=== PATIENT | female | born 1930 | race Caucasian/White ===

== ENCOUNTER 2016-06-24 04:20 | Emergency (ER) | payer OTHER, MEDICARE ==
--- NOTE | 2016-06-24 04:56 | PDOC ---
History of Present Illness - History of Present Illness Initial Comments: 06/24/16 05:01 The patient is a 86 year old female, with a significant past medical history of gait instability and frequent falls, who presents to the emergency department via ems from home for unwitnessed mechanical fall yesterday, The patient was found seated at home as per ems this morning. The patient reports frequent falls recently and a new abrasion to the left side of her face. The patient states she remembers the series of events leading up to the fall but does not know if she lost consciousness. She denies chest pain, shortness of breath, headache and dizziness. She denies fever, chills, nausea, vomit, diarrhea and constipation. She denies dysuria, frequency, urgency and hematuria. Allergies: NKDA PCP - Dr. Bennett <Yaz Andersen - Last Filed: 06/24/16 06:04> - General History Source: Patient <Milton Espinoza - Last Filed: 06/24/16 06:09> - General Chief Complaint: Injury Stated Complaint: FALL Time Seen by Provider: 06/24/16 04:56 Past History <Yaz Andersen - Last Filed: 06/24/16 06:04> - Past Medical History HTN: Yes Hypercholesterolemia: Yes Psychiatric Problems: Yes (Anxiety disorder) - Surgical History Abdominal Surgery: Yes (HERNIA) Orthopedic Surgery: Yes (Bilateral Knees) - Immunization History Immunization Up to Date: Yes - Psycho/Social/Smoking Cessation Hx Anxiety: Yes Suicidal Ideation: No Smoking Status: No Smoking History: Never smoked Have you smoked in the past 12 months: No Number of Cigarettes Smoked Daily: 0 Hx Alcohol Use: No Drug/Substance Use Hx: No Substance Use Type: None Hx Substance Use Treatment: No <Milton Espinoza - Last Filed: 06/24/16 06:09> - Past Medical History Allergies/Adverse Reactions: Allergies Allergy/AdvReac Type Severity Reaction Status Date / Time No Known Allergies Allergy Verified 06/24/16 05:01 Home Medications: Ambulatory Orders Carbidopa/Levodopa *Cr* 25/100 [Sinemet *Cr* 25/100 -] 1 combo PO TID #0 tablet.er 09/30/13 Donepezil HCl [Aricept -] 5 mg PO DAILY #0 tablet 09/30/13 Aspirin [ASA -] 81 mg PO DAILY #0 tab.chew 07/13/15 Atorvastatin Ca [Lipitor] 10 mg PO HS #0 tablet 07/13/15 Carbidopa/Levodopa *Cr* 25/100 [Sinemet *Cr* 25/100 -] 1 combo PO TID #0 tablet.er 07/13/15 Donepezil HCl [Aricept -] 5 mg PO DAILY #0 tablet 07/13/15 Metoprolol Succinate [Toprol XL -] 25 mg PO BID #0 tab.sr.24h NS 07/13/15 Metoprolol Succinate [Toprol XL -] 25 mg PO DAILY tab.sr.24h 07/13/15 Pramipexole Dihydrochloride [Mirapex -] 0.25 mg PO TID #0 tablet 07/13/15 Sertraline HCl [Zoloft -] 25 mg PO HS #0 07/13/15 Review of Systems - Review of Systems Able to Perform ROS?: Yes Comments:: 06/24/16 05:01 CONSTITUTIONAL: Absent: fever, chills, diaphoresis, generalized weakness, malaise, loss of appetite HEENT: (+) abrasion to left mu-ism s/p fall. Absent: rhinorrhea, nasal congestion, throat pain, throat swelling, difficulty swallowing, mouth swelling, ear pain, eye pain, visual Changes CARDIOVASCULAR: Absent: chest pain, syncope, palpitations, irregular heart rate, lightheadedness , peripheral edema RESPIRATORY: Absent: cough, shortness of breath, dyspnea with exertion, orthopnea, wheezing, stridor, hemoptysis GASTROINTESTINAL: Absent: abdominal pain, abdominal distension, nausea, vomiting, diarrhea, constipation, melena, hematochezia GENITOURINARY: Absent: dysuria, frequency, urgency, hesitancy, hematuria, flank pain, genital pain MUSCULOSKELETAL: Absent: myalgia, arthralgia, joint swelling SKIN: Absent: rash, itching, pallor HEMATOLOGIC/IMMUNOLOGIC: Absent: easy bleeding, easy bruising, lymphadenopathy, frequent infections ENDOCRINE: Absent: unexplained weight gain, unexplained weight loss, heat intolerance, cold intolerance NEUROLOGIC: Absent: headache, focal weakness or paresthesias, dizziness, unsteady gait, seizure, mental status changes, bladder or bowel incontinence PSYCHIATRIC: Absent: anxiety, depression, suicidal or homicidal ideation, hallucinations. <Yaz Andersen - Last Filed: 06/24/16 06:04> *Physical Exam - Vital Signs Last Vital Signs Temp Pulse Resp BP Pulse Ox 97.2 F L 99 H 18 138/59 100 06/24/16 04:51 06/24/16 04:51 06/24/16 04:51 06/24/16 04:51 06/24/16 04:51 - Physical Exam Comments: 06/24/16 05:02 GENERAL: Well developed, well nourished. Awake and alert. No acute distress. The patient is appropriately answering questions. HEENT: (+) occipital temporal abrasion on left side. Normocephalic, PERRLA, EOMI. No conjunctival pallor. Sclera are non-icteric. Moist mucous membranes. Oropharynx is clear. NECK: Supple. Full ROM. No JVD. Carotid pulses 2+ and symmetric, without bruits. No thyromegaly. No lymphadenopathy. CARDIOVASCULAR: Regular rate and rhythm. No murmurs, rubs, or gallops. Distal pulses are 2+ and symmetric. PULMONARY: No evidence of respiratory distress. Lungs clear to auscultation bilaterally. No wheezing, rales or rhonchi. ABDOMINAL: Soft. Non-tender. Non-distended. No rebound or guarding. No organomegaly. Normoactive bowel sounds. MUSCULOSKELETAL Normal range of motion at all joints. No bony deformities or tenderness. No CVA tenderness. EXTREMITIES: No cyanosis. No clubbing. No edema. No calf tenderness. SKIN: Warm and dry. Normal capillary refill. No rashes. No jaundice. NEUROLOGICAL: Alert, awake, appropriate. Cranial nerves 2-12 intact. Normoreflexic in the upper and lower extremities. Normal speech. Toes are down-going bilaterally. Gait is normal without ataxia. PSYCHIATRIC: Cooperative. Good eye contact. Appropriate mood and affect. <Yaz Andersen - Last Filed: 06/24/16 06:04> ED Treatment Course - RADIOLOGY Radiograph Interpretation: 06/24/16 06:02 EXAM: CT brain without contrast was read by Yves Nieto MD 06/24/2016 05:58 EST REASON FOR EXAM: Dizziness rule out bleed. Fall. COMPARISON: CT brain November 11, 2015 FINDINGS: Involutional changes of aging. No hemorrhage. No mass. No visible acute infarct. Osseous structures are intact. EXAM: CT cervical spine without contrast was read by Yves Nieto MD 2016 05:50 EST COMPARISON: No prior scans transmitted for comparison. FINDINGS: Negative for cervical fracture or acute cervical malalignment. Osteopenia and degenerative changes. No made of a fairly large partially calcified disc herniation at C3-4 impressing on the canal and impressing on the anterior margin of the spinal cord, causing canal narrowing. Correlate with prior scans to determine if this was present previously. Correlate with any neurologic symptoms. If prior scans can be transmitted I can perform a comparative interpretation. <Yaz Andersen - Last Filed: 06/24/16 06:04> Medical Decision Making - Medical Decision Making 06/24/16 06:04 Dr. Bennett was called at 6:05 and the patient's case was discussed. <Yaz Andersen - Last Filed: 06/24/16 06:04> - Medical Decision Making 06/24/16 06:08 Dr. Espinoza: The scribe's documentation has been prepared under my direction and personally reviewed by me in its entirery. I confirm that the note above accurately reflects all work, treatment, procedures, and medical decision making performed by me. Spoke to pt pcp. Made him aware that pt was here. Will attempt to contact family. <Milton Espinoza - Last Filed: 06/24/16 06:09> *DC/Admit/Observation/Transfer - Attestations Scribe Attestion: 06/24/16 05:04 Documentation prepared by Yaz Andersen, acting as medical manager for Milton Espinoza MD <Yaz Andersen - Last Filed: 06/24/16 06:04> - Discharge Dispostion Admit: No <Milton Espinoza - Last Filed: 06/24/16 06:09> Diagnosis at time of Disposition: Closed head injury Qualifiers: Encounter type: subsequent encounter Qualified Code(s): S09.90XD - Unspecified injury of head, subsequent encounter - Discharge Dispostion Disposition: HOME Condition at time of disposition: Stable - Referrals Referrals: Tucker Bennett MD [Primary Care Provider] - - Patient Instructions Printed Discharge Instructions: DI for Closed Head Injury
[2016-06-24 05:00] VITALS: BP 138/59; PULSE 99; TEMP 97.2; BMI 18.8
== END 2016-06-24 07:03 | disposition home or self-care (01) ==
LOC: JER 04:20
DX: S00.81XA Abrasion of other part of head, initial encounter (principal); W18.39XA Other fall on same level, initial encounter; Z91.81 History of falling; Y93.89 Activity, other specified; Y92.019 Unspecified place in single-family (private) house as the place of occurrence of the external cause; Y99.8 Other external cause status; I10 Essential (primary) hypertension; E78.00 Pure hypercholesterolemia, unspecified; F41.8 Other specified anxiety disorders
CPT/HCPCS: 70450-TC; 72125-TC; 99284-25

== ENCOUNTER 2016-06-26 11:45 | Inpatient (IN) | payer OTHER, MEDICARE ==
--- NOTE | 2016-06-26 11:50 | PDOC ---
Attending Attestation - Resident Resident Name: PremMona - ED Attending Attestation I have performed the following: I have examined & evaluated the patient, The case was reviewed & discussed with the resident, I agree w/resident's findings & plan, Exceptions are as noted - HPI HPI: 06/26/16 11:49 The patient is an 86-year-old female, with extensive past medical history, who presents to the emergency department complaining of constipation for the past 10 days. Her last bowel movement was 10 days ago. She denies abdominal pain, vomiting. Her primary care physician sent her to the emergency department to rule out small bowel obstruction, and for inpatient admission. 06/26/16 11:50 06/26/16 12:44 - Physicial Exam PE: 06/26/16 11:50 The patient is well-appearing and in no acute distress Vitals noted - Medical Decision Making 06/26/16 11:50 She is well-appearing and in no acute distress Will obtain labs, CT of the abdomen and pelvis with oral contrast Will begin gentle fluid resuscitation 06/26/16 13:[address] pending 06/26/16 15:30 UA noted Clinical impression: Failure to thrive Frequent falls Starvation ketosis Severe constipation 06/26/16 15:46 CT was done, and results are pending Primary care physician has seen the patient Case discussed in detail with admitting provider including history, physical exam and ancillary studies. Admitting physician has assumed care for the patient, will follow all pending diagnostics and will complete the evaluation and treatment. A portion of this note was documented by scribe services under my direction. I have reviewed the details of the note, within reason, and agree with the documentation with the following case summary and management plan written by me.
--- NOTE | 2016-06-26 11:53 | PDOC ---
History of Present Illness - General Stated Complaint: FALL Time Seen by Provider: 06/26/16 11:49 - History of Present Illness Initial Comments: 06/26/16 11:53 The patient is a 85 year old female with a significant past medical history of Parkinson's disease, HTN, history of falls, Renal failure, cholelithiasis, anxiety, depression, who presents to the ED referred by her primary care physician. She is complaining of constipation for 10 days. She has tried many OTC supplements without any relief. She has been complaining of constipation for long time. SHe also reports dysuria yesterday and increased frequency. The pt denies abdominal pain, fever, weight loss, fever, chills. The pt denies chest pain, SOB, palpitations. The pt denies headache, weakness, headache. Past History - Past Medical History Allergies/Adverse Reactions: Allergies Allergy/AdvReac Type Severity Reaction Status Date / Time No Known Allergies Allergy Verified 06/24/16 05:01 Home Medications: Ambulatory Orders Carbidopa/Levodopa *Cr* 25/100 [Sinemet *Cr* 25/100 -] 1 combo PO TID #0 tablet.er 09/30/13 Donepezil HCl [Aricept -] 5 mg PO DAILY #0 tablet 09/30/13 Aspirin [ASA -] 81 mg PO DAILY #0 tab.chew 07/13/15 Atorvastatin Ca [Lipitor] 10 mg PO HS #0 tablet 07/13/15 Carbidopa/Levodopa *Cr* 25/100 [Sinemet *Cr* 25/100 -] 1 combo PO TID #0 tablet.er 07/13/15 Donepezil HCl [Aricept -] 5 mg PO DAILY #0 tablet 07/13/15 Metoprolol Succinate [Toprol XL -] 25 mg PO BID #0 tab.sr.24h NS 07/13/15 Metoprolol Succinate [Toprol XL -] 25 mg PO DAILY tab.sr.24h 07/13/15 Pramipexole Dihydrochloride [Mirapex -] 0.25 mg PO TID #0 tablet 07/13/15 Sertraline HCl [Zoloft -] 25 mg PO HS #0 07/13/15 HTN: Yes Hypercholesterolemia: Yes Psychiatric Problems: Yes (Anxiety disorder) - Surgical History Abdominal Surgery: Yes (HERNIA) Orthopedic Surgery: Yes (Bilateral Knees) - Immunization History Immunization Up to Date: Yes - Psycho/Social/Smoking Cessation Hx Anxiety: Yes Suicidal Ideation: No Smoking Status: No Smoking History: Never smoked Have you smoked in the past 12 months: No Number of Cigarettes Smoked Daily: 0 Hx Alcohol Use: No Drug/Substance Use Hx: No Substance Use Type: None Hx Substance Use Treatment: No Review of Systems - Review of Systems Comments:: 06/26/16 12:25 REVIEW OF SYSTEMS CONSTITUTIONAL: Absent: fever, chills, diaphoresis, generalized weakness, malaise, loss of appetite, weight change HEENT: Absent: rhinorrhea, nasal congestion, throat pain, throat swelling, difficulty swallowing CARDIOVASCULAR: Absent: chest pain, syncope, palpitations, irregular heart rate, lightheadedness , peripheral edema RESPIRATORY: Absent: cough, shortness of breath, dyspnea with exertion, orthopnea, wheezing, stridor, hemoptysis GASTROINTESTINAL: constipation, Absent: abdominal pain, abdominal distension, nausea, vomiting, diarrhea, GENITOURINARY: Absent: dysuria, frequency, urgency, hesitancy, hematuria, flank pain, genital pain MUSCULOSKELETAL: Absent: myalgia, arthralgia, joint swelling, back pain, neck pain SKIN: Absent: rash, itching, pallor HEMATOLOGIC/IMMUNOLOGIC: Absent: easy bleeding, easy bruising, lymphadenopathy, frequent infections ENDOCRINE: Absent: unexplained weight gain, unexplained weight loss, heat intolerance, cold intolerance NEUROLOGIC: Absent: headache, focal weakness or paresthesias, dizziness, unsteady gait, seizure PSYCHIATRIC: Absent: anxiety, depression *Physical Exam - Physical Exam Comments: 06/26/16 12:26 GENERAL: The patient is awake, alert, and fully oriented, in no acute distress. HEAD: Normal with no signs of trauma. EYES: PERRL, extraocular movements intact, sclera anicteric, conjunctiva clear. ENT: oropharynx clear without exudates, moist mucous membranes. NECK: Trachea midline, full range of motion, supple. LUNGS: Breath sounds equal, diminished to auscultation bilaterally, no wheezes, no crackles, no accessory muscle use. HEART: Regular rate and rhythm, S1, S2 without murmur, rub or gallop. ABDOMEN: Soft, tender to palpation in epigastrium, nondistended, normoactive bowel sounds, no guarding, no rebound. EXTREMITIES: 2+ pulses, warm, well-perfused, no edema. NEUROLOGICAL: Normal speech, gait not observed. PSYCH: Normal mood, normal affect. SKIN: Warm, dry, normal turgor, no rashes. ED Treatment Course - LABORATORY CBC & Chemistry Diagram: 06/26/16 12:30 06/26/16 12:30 Medical Decision Making - Medical Decision Making 06/26/16 15:[address] abdomen/pelvis. L laboratory abnormalities noted. 06/26/16 16:05 The pt was admitted to inpatient med surg. CT abdomen/pelvis shows fecal impaction, no SBO. *DC/Admit/Observation/Transfer Diagnosis at time of Disposition: Small bowel obstruction - Discharge Dispostion Admit: Yes - Referrals
[2016-06-26] MEDS ORDERED: PEG3350/SOD SULF,BICARB,CL/KCL 4,000 ML SOLN.RECON PO ONE ×2 (12:05→17:30)
[2016-06-26] MEDS: SODIUM CHLORIDE 1,000 ML IV SCH ×2 (12:39→18:41)
[2016-06-26 12:49] LABS: MCH 28.9 pg (25.7-33.7); MEAN CELL VOLUME 84.9 fl (80-96); PLATELET COUNT 200 K/MM3 (134-434); RDW 13.7 % (11.6-15.6)
[2016-06-26 13:19] LABS: CALCIUM 9.4 mg/dL (8.5-10.1); COCKROFT - GAULT 109.65; CREATININE 0.6 mg/dL (0.55-1.02)
[2016-06-26 13:51] LABS: URINE APPEARANCE CLEAR; URINE BILIRUBIN NEGATIVE (NEGATIVE); URINE COLOR STRAW; URINE GLUCOSE (UA) NEGATIVE (NEGATIVE); URINE KETONE 1+ (NEGATIVE); URINE LEUK ESTERASE NEGATIVE (NEGATIVE); URINE NITRITE NEGATIVE (NEGATIVE); URINE PROTEIN NEGATIVE (NEGATIVE); URINE UROBILINOGEN NEGATIVE E.U./dl (0.2-1.0)
[2016-06-26 14:21] LABS: URINE BLOOD 2+ (NEGATIVE)
[2016-06-26 14:50] LABS: URINE RBC 28 /hpf (0-3); URINE WBC 2 /hpf (3-5)
--- NOTE | 2016-06-26 15:41 | HP ---
Admitting History and Physical - Admission Chief Complaint: 86 y.o F developed MS change, constipation for 10 days and was not able toeat or drink fluids. Seen in the ER after fall 06/24/2016 and was d/ c. Now brought back to the ER by the family. History of Present Illness: Advanced Parkinson"s disease. Unstable gait. Falls. Weight loss. Cholelithiasis. HTN/ Dementia. CRI. Hypokalemia, hypomagnesemia. 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 Cardiovascular: Yes: HTN, Hyperlipdemia Gastrointestinal: Yes: Constipation, Other Hepatobiliary: Yes: Cholelithiasis Renal/: Yes: Renal Inusuff Psych: Yes: Depression Musculoskeletal: Yes: Osteoarthritis - Smoking History Smoking history: Never smoked Have you smoked in the past 12 months: No Aproximately how many cigarettes per day: 0 - Alcohol/Substance Use Hx Alcohol Use: No Home Medications - Allergies Allergies/Adverse Reactions: Allergies Allergy/AdvReac Type Severity Reaction Status Date / Time No Known Allergies Allergy Verified 06/24/16 05:01 - Home Medications Home Medications: Ambulatory Orders Donepezil HCl [Aricept -] 5 mg PO DAILY 06/26/16 Potassium Chloride [K-Dur -] 10 meq PO DAILY 06/26/16 Simvastatin [Zocor -] 20 mg PO HS 06/26/16 Family Disease History - Family Disease History Family History: Unremarkable Family Disease History: Respiratory: Daughter Review of Systems Unable to obtain ROS, reason: Advanced Parkinson"s, OMS Physical Examination Vital Signs: Vital Signs Temperature 98.4 F 06/26/16 11:56 Pulse Rate Respiratory Rate 20 06/26/16 11:56 Blood Pressure 163/95 06/26/16 11:56 O2 Sat by Pulse Oximetry (%) Constitutional: Yes: Anxious, Cachectic, Moderate Distress, Pallor, Thin Eyes: Yes: Conjunctiva Clear, EOM Intact, PERRL HENT: Yes: Atraumatic, Normocephalic Neck: Yes: Trachea Midline, Decreased ROM, Rigid Cardiovascular: Yes: Regular Rate and Rhythm, S1, S2 Gastrointestinal: Yes: Normal Bowel Sounds, Soft ...Rectal Exam: Yes: Deferred Renal/: Yes: WNL Breast(s): Yes: Left, Right Musculoskeletal: Yes: Joint Stiffness Extremities: Yes: Other (No CCE) Edema: No Peripheral Pulses WNL: Yes Neurological: Yes: Alert, Dysarthria, Tremors, Unsteady Gait, Weakness ...Motor Strength: LUE, LLE, RUE, RLE (Stiffness) Psychiatric: Yes: Alert Labs: CBC, BMP 06/26/16 12:30 06/26/16 12:30 Laboratory Results - last 24 hr 06/26/16 06/26/16 06/26/16 12:30 12:30 13:40 WBC 4.0 RBC 4.68 Hgb 13.5 D Hct 39.8 MCV 84.9 MCHC 34.0 RDW 13.7 Plt Count 200 MPV 7.0 L Sodium 138 Potassium 3.9 Chloride 96 L D Carbon Dioxide 30 Anion Gap 12 BUN 8 D Creatinine 0.6 Random Glucose 74 D Calcium 9.4 Urine Color Straw Urine Appearance Clear Urine pH 7.0 Ur Specific Sullivan 1.010 Urine Protein Negative Urine Glucose (UA) Negative Urine Ketones 1+ H Urine Blood 2+ H Urine Nitrite Negative Urine Bilirubin Negative Urine Urobilinogen Negative Ur Leukocyte Esterase Negative Urine RBC 28 Urine WBC 2 Ur Epithelial Cells Rare Imaging - Results Cat Scan: Image Reviewed EKG: Report Reviewed, Image Reviewed Problem List - Problems (1) Functional gait disorder with tremor Assessment/Plan: Pt according to family is unable to eat or drink enough. Advanced Parkinson's. Will check B12, Folate swallow eval. Code(s): R26.9 - UNSPECIFIED ABNORMALITIES OF GAIT AND MOBILITY R25.1 - TREMOR, UNSPECIFIED (2) Parkinson disease, symptomatic Assessment/Plan: Neurology consult. Previously poorly tolerated Sinemet and stopped. Code(s): G20 - PARKINSON'S DISEASE (3) Failure to thrive in adult Assessment/Plan: Severe weight loss, cachexia. Will start supplements PT eval, Swallow eval. Code(s): R62.7 - ADULT FAILURE TO THRIVE (4) Fecal impaction of colon Assessment/Plan: Enema, golytely , Miralax, f/u with KUB Code(s): K56.41 - FECAL IMPACTION
--- NOTE | 2016-06-26 16:08 | EKG ---
Test Reason : Blood Pressure : / mmHG Vent. Rate : 084 BPM Atrial Rate : 063 BPM P-R Int : 000 ms QRS Dur : 120 ms QT Int : 450 ms P-R-T Axes : 072 -76 030 degrees QTc Int : 531 ms POOR DATA QUALITY, INTERPRETATION MAY BE ADVERSELY AFFECTED SINUS RHYTHM LEFT AXIS DEVIATION RIGHT BUNDLE BRANCH BLOCK INFERIOR INFARCT , AGE UNDETERMINED ABNORMAL ECG Confirmed by ANGELIA CARBONE MD ([id number]) on 06/26/2016 4:08:25 PM Referred By: Confirmed By:ANGELIA CARBONE MD
[2016-06-26 18:37] VITALS: BMI 17.9
[2016-06-26] MEDS ORDERED: BISACODYL 10 MG SUPP.RECT RC ONE (19:33)
[2016-06-26] MEDS: D5-1/2NS+20 MEQ KCL - 1,000 ML IV SCH (20:46)
[2016-06-26] MEDS: POLYETHYLENE GLYCOL 3350 119 GM BTL PO SCH (21:32)
--- NOTE | 2016-06-26 23:08 | CONSULT ---
Consult - text type - Consultation Consultation Note: NEUROLOGY CONSULTATION is greatly appreciated: This 86 yo RH woman lives at home with her family. PMH sig for Chol and advanced Parkinson's disease (PD) wit dementia. On simvastatin and donepezil (5 mg). Now admitted with obstipation (no BM x 10 days). REHANA: Thin, Kyphotic (X-rays shows T1 and T2 vertebral collapse). Neck rigid in all directioins. No bruits. Cor reg. Early contractures at the knees NEURO: awake, alert cooperative. confused. Ox "[place] " but knows her name and Hypophonic, festinating speech. + Glabella, snout, suck, palmomentals Masked facies. Gag OK Symmetrical mov'ts and rigid tone. Course rest tremors. + cogwheeling Brisk but symmetrical reflexes. Withdraws all 4's briskly to pin. IMP: Parkinson's Disease with moderately advanced OMS SUGGEST: Push PO fluids and nutritional supplements (boost, ensure, etc). Give colace or metamucil with breakfast and dinner. Give MOM at bedtime. Place on bedside commode every morning for 15 mins. Review personal and family history of PD (this prominent OMS suggests possible familial pattern). Has patient received L-Dopa in the past? A trial of low dose LD might be warranted. Meanwhile continue donepezil 5 q AM or consider change to rivastigmine 1.5 mg with breakfast and dinner which can have loose stools as a side effect. Thank you very much, Yves Julio MD
--- NOTE | 2016-06-27 08:08 | PN ---
Progress Note, Physician Chief Complaint: Dr. Julio consult appreciated BM at night. NAD now. History of Present Illness: Advanced Parkinson"s disease. Unstable gait. Falls. Weight loss. Cholelithiasis. HTN/ Dementia. CRI. Hypokalemia, hypomagnesemia. EST MIBI 2013-negative - Current Medication List Current Medications: Active Medications Donepezil HCl (Aricept -) 5 mg PO HS AUBREE Sodium Chloride (Normal Saline -) 1,000 mls @ 125 mls/hr IV ASDIR AUBREE Last Admin: 06/26/16 18:41 Dose: 125 mls/hr Potassium Chloride/Dextrose/Sod Cl (D5-1/2ns+20 Meq Kcl -) 1,000 mls @ 42 mls/ hr IV ASDIR AUBREE Last Admin: 06/26/16 20:46 Dose: 42 mls/hr Polyethylene Glycol (Miralax (For Daily Use) -) 17 gm PO BID AUBREE Last Admin: 06/26/16 21:32 Dose: 17 gm Silver Sulfadiazine (Silvadene -) 1 applic TP BID [facility] - Objective Vital Signs: Vital Signs Temperature 97.6 F 06/27/16 06:00 Pulse Rate 80 06/27/16 06:00 Respiratory Rate 18 06/27/16 06:00 Blood Pressure 125/72 06/27/16 06:00 O2 Sat by Pulse Oximetry (%) 98 06/26/16 23:00 Constitutional: Yes: Cachectic, Mild Distress, Thin Eyes: Yes: Conjunctiva Clear, EOM Intact HENT: Yes: Atraumatic, Normocephalic. No: Drooling, Pharyngeal Erythema Neck: Yes: Supple, Trachea Midline, Decreased ROM, Rigid. No: Lymphadenopathy, Tenderness, Thyromegaly Cardiovascular: Yes: Regular Rate and Rhythm. No: Bradycardia, Tachycardia Respiratory: Yes: Regular, CTA Bilaterally Gastrointestinal: Yes: Normal Bowel Sounds, Soft. No: Abdomen, Obese, Ascites, Distention, Hypoactive Bowel Sounds, Melena, Palpable Mass, Pulsatile Mass, Splenomegaly, Tenderness, Tenderness, Epigastrium, Tenderness, Rebound, Vomiting ...Rectal Exam: Yes: Hemorrhoids/External, Sphincter Tone Normal, Other (liquid stool in rectum) Genitourinary: No: Anuria, Bladder Distention Breast(s): Yes: WNL Musculoskeletal: Yes: Muscle Weakness. No: Joint Swelling Extremities: No: Amputation, Calf Tenderness, Cold, Deformity Edema: No Integumentary: Yes: Pressure Ulcer (sacral stage 2) Wound/Incision: Yes: Clean/Dry ...Motor Strength: WNL Psychiatric: Yes: Alert, Oriented (x2). No: Agitated, Suicidal Ideation Problem List - Problems (1) Functional gait disorder with tremor Assessment/Plan: Pt according to family is unable to eat or drink enough. Advanced Parkinson's. Will check B12, Folate swallow eval. Code(s): R26.9 - UNSPECIFIED ABNORMALITIES OF GAIT AND MOBILITY R25.1 - TREMOR, UNSPECIFIED (2) Parkinson disease, symptomatic Assessment/Plan: Neurology consult. Previously poorly tolerated Sinemet and stopped. Code(s): G20 - PARKINSON'S DISEASE (3) Failure to thrive in adult Assessment/Plan: Severe weight loss, cachexia. Will start supplements PT eval, Swallow eval. Code(s): R62.7 - ADULT FAILURE TO THRIVE (4) Fecal impaction of colon Assessment/Plan: Improved KUB -P Code(s): K56.41 - FECAL IMPACTION (5) Malnutrition of moderate degree Assessment/Plan: Ensure plus TID Code(s): E44.0 - MODERATE PROTEIN-CALORIE MALNUTRITION (6) Pressure ulcer of back Assessment/Plan: Wound care. Code(s): L89.109 - PRESSURE ULCER OF UNSP PART OF BACK, UNSPECIFIED STAGE Qualifiers: Pressure ulcer stage: stage 2
[2016-06-27 08:50] LABS: EOSINOPHIL 0.5 % (0-4.5); MCH 28.7 pg (25.7-33.7); MEAN CELL VOLUME 84.3 fl (80-96); NEUTROPHILS 60.6 % (42.8-82.8); PLATELET COUNT 202 K/MM3 (134-434); RDW 13.3 % (11.6-15.6); WHITE BLOOD COUNT 3.9 K/mm3 (4.0-10.0)
[2016-06-27 09:01] LABS: BILIRUBIN,TOTAL 0.8 mg/dL (0.2-1.0); COCKROFT - GAULT 43.4775; CREATININE 0.6 mg/dL (0.55-1.02); SGOT/AST 19 U/L (15-37); SGPT/ALT 20 U/L (12-78)
[2016-06-27 09:03] LABS: ALBUMIN 3.9 g/dl (3.4-5.0); ANION GAP 12 (8-16); CALCIUM 9.1 mg/dL (8.5-10.1); CO2 28 mmol/L (21-32); GLUCOSE,RANDOM 70 mg/dL (74-106); MAGNESIUM 1.9 mg/dL (1.8-2.4)
[2016-06-27 09:04] LABS: FREE T4 1.21 ng/dl (0.76-1.46)
[2016-06-27 09:08] LABS: ALK PHOS 105 U/L (45-117); THYROID STIMULATING HORMONE 0.67 uIU/ml (0.358-3.74)
--- NOTE | 2016-06-27 11:49 | CONSULT ---
Admitting History and Physical - Primary Care Physician PCP: Tucker Bennett - Admission History of Present Illness: According to family, pt is unable to eat or drink enough. Advanced Parkinson's. Severe weight loss, cachexia. Referred for swallowing evaluation. 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 When questioned, she corrected herself that her "mother ". oriented to 82. [place] Attention: Distractible, Mild Impairment Ability to Follow Directions: Fair - Hearing Hearing: Normal Hearing Aide: No With Patient: No Speech Evaluation - Communication Primary Language: SLOVENIAN Communication: Yes: Simple Responses Oral Expression Ability: Yes: Mild Impairment, Moderate Impairment - Speech Production Dysarthria: Yes: Hypokinetic Intelligibility: Yes: Mildly Impaired, Moderately Impaired - Speech Characteristics Voice Loudness: Mildly Soft/Quiet, Moderately Soft/Quiet, Hypophonia Voice Pitch: Yes: Normal Voice Phonatory-based Quality: Yes: Normal Speech Pattern: Impaired Speech Clarity: < 50% Nasal Resonance: Normal Articulation: Yes: Precise Rate of Speech: Too Fast - Language/Auditory Comprehension Follows: Yes: 1 Stage Simple Commands - Language/Verbal Expression Able to Communicate Wants and Needs: Yes: WNL - Swallow Evaluation/Bedside Assessment Current Nutritional Intake: Soft, Thin Liquids Oral Secretions: Yes: WFL Dentition: Yes: Missing Teeth (lower posteriorally, possibly adversely affecting mastication.), Dental Appliance Upper Facial Symmetry at Rest: Symmetrical Facial Symmetry on Retraction: Symmetrical Pucker Lips: Normal Smile: Normal Lingual Movement: Normal, Symmetric Lingual Speed of Movement: Normal Velopharyngeal Movement: Normal Laryngeal Movement: Able to Palpate Rate of Intake: WFL Oral Prep Time: Increased (mildly extended mastication.) Timing of Swallow: WFL Coughing/Throat Clear: No Change in Voice: No Recommendations - Speech Evaluation, Impression/Plan Impression: Missing lower dentition posteriorally, possibly adversely affecting mastication. Brisk swallow. No overt signs of aspiration. Confused. Needs to be fed. Hypokinetic dysarthria. - Dysphagia Impressions/Plan Dysphagia Impressions: Mild Impairment, Ongoing Evaluation *Silent aspiration: cannot be R/O at bedside Dysphagia Treatment Plan: Small Bites, Chin Tuck/Down, Clear Pocket Food, Safe Rate, 1/2 tsp. at a time, Elevate HOB during feed, Other (Feed pt) - Recommendations Diet Consistency: Regular (very soft, easy to chew. Meats chopped with gravy.) Medication Administration: Crushed with applesauce Liquids: Thin Liquids Supplement: Ensure, Magic Cup
[2016-06-27] MEDS: POLYETHYLENE GLYCOL 3350 119 GM BTL PO SCH ×2 (15:57→22:19)
[2016-06-27] MEDS: D5-1/2NS+20 MEQ KCL - 1,000 ML IV SCH ×2 (15:57→20:29)
[2016-06-27] MEDS: SILVER SULFADIAZINE 1% TOP CREAM 50 GM JAR TP SCH ×2 (16:00→22:19)
[2016-06-27] MEDS: DONEPEZIL HCL 5 MG TABLET (FP) PO SCH (22:19)
[2016-06-28] MEDS: POLYETHYLENE GLYCOL 3350 119 GM BTL PO SCH ×2 (10:47→21:22)
[2016-06-28] MEDS: SILVER SULFADIAZINE 1% TOP CREAM 50 GM JAR TP SCH ×2 (10:48→21:22)
--- NOTE | 2016-06-28 14:05 | PN ---
Progress Note, Physician Chief Complaint: Pt is able to eat and drink. Kory magaña noted Abd x-ray-no SBO. Moves BM Family at bedside. Vital Signs (72 hours) 06/26/16 06/26/16 06/26/16 11:56 18:19 18:20 Temperature 98.4 F Pulse Rate Pulse Rate [ 100 H Left Radial] Respiratory 20 20 20 Rate Blood Pressure 163/95 Blood Pressure 155/80 [Right Arm] O2 Sat by Pulse 100 100 Oximetry (%) 06/26/16 06/26/16 06/26/16 18:33 21:00 22:00 Temperature 97.0 F L 97.0 F L Pulse Rate 67 70 Pulse Rate [ Left Radial] Respiratory 18 20 18 Rate Blood Pressure 106/72 110/70 Blood Pressure [Right Arm] O2 Sat by Pulse 100 Oximetry (%) 06/26/16 06/27/16 06/27/16 23:00 06:00 14:11 Temperature 97.6 F 97.8 F Pulse Rate 80 79 Pulse Rate [ Left Radial] Respiratory 18 18 Rate Blood Pressure 125/72 126/66 Blood Pressure [Right Arm] O2 Sat by Pulse 98 Oximetry (%) 06/27/16 06/27/16 06/27/16 21:00 22:00 22:20 Temperature 97.5 F L 96.7 F L Pulse Rate 68 86 Pulse Rate [ Left Radial] Respiratory 18 20 Rate Blood Pressure 98/52 130/80 Blood Pressure [Right Arm] O2 Sat by Pulse 98 Oximetry (%) 06/28/16 06/28/16 06:00 09:00 Temperature 97.9 F 98.7 F Pulse Rate 77 80 Pulse Rate [ Left Radial] Respiratory 20 18 Rate Blood Pressure 101/61 101/66 Blood Pressure [Right Arm] O2 Sat by Pulse 98 Oximetry (%) Lungs clear Heart S1S2 regular Abdomen soft, NT Ext-no CCE Current Active Problems Problem Status Diagnosed Failure to thrive in adult Acute Fecal impaction of colon Acute Malnutrition of moderate degree Acute Pressure ulcer of back Acute Small bowel obstruction Acute Plan PT Nutritional support. Observe for BM D/c planning. History of Present Illness: Advanced Parkinson"s disease. Unstable gait. Falls. Weight loss. Cholelithiasis. HTN/ Dementia. CRI. Hypokalemia, hypomagnesemia. EST MIBI 2012-negative - Current Medication List Current Medications: Active Medications Donepezil HCl (Aricept -) 5 mg PO HS [facility] Last Admin: 06/27/16 22:19 Dose: 5 mg Sodium Chloride (Normal Saline -) 1,000 mls @ 125 mls/hr IV ASDIR [facility] Last Admin: 06/26/16 18:41 Dose: 125 mls/hr Potassium Chloride/Dextrose/Sod Cl (D5-1/2ns+20 Meq Kcl -) 1,000 mls @ 42 mls/ hr IV ASDIR [facility] Last Admin: 06/27/16 20:29 Dose: Not Given Polyethylene Glycol (Miralax (For Daily Use) -) 17 gm PO BID [facility] Last Admin: 06/28/16 10:47 Dose: 17 gm Silver Sulfadiazine (Silvadene -) 1 applic TP BID [facility] Last Admin: 06/28/16 10:48 Dose: 1 applic - Objective Vital Signs: Vital Signs Temperature 98.7 F 06/28/16 09:00 Pulse Rate 80 06/28/16 09:00 Respiratory Rate 18 06/28/16 09:00 Blood Pressure 101/66 06/28/16 09:00 O2 Sat by Pulse Oximetry (%) 98 06/28/16 09:00 Labs: CBC, BMP 06/27/16 06:15 06/27/16 06:15 Problem List - Problems (1) Functional gait disorder with tremor Code(s): R26.9 - UNSPECIFIED ABNORMALITIES OF GAIT AND MOBILITY R25.1 - TREMOR, UNSPECIFIED (2) Parkinson disease, symptomatic Code(s): G20 - PARKINSON'S DISEASE (3) Failure to thrive in adult Code(s): R62.7 - ADULT FAILURE TO THRIVE (4) Fecal impaction of colon Code(s): K56.41 - FECAL IMPACTION (5) Malnutrition of moderate degree Code(s): E44.0 - MODERATE PROTEIN-CALORIE MALNUTRITION (6) Pressure ulcer of back Code(s): L89.109 - PRESSURE ULCER OF UNSP PART OF BACK, UNSPECIFIED STAGE Qualifiers: Pressure ulcer stage: stage 2
[2016-06-28] MEDS: D5-1/2NS+20 MEQ KCL - 1,000 ML IV SCH ×2 (16:28→19:45)
[2016-06-28] MEDS: SODIUM CHLORIDE 1,000 ML IV SCH (16:30)
[2016-06-28] MEDS: DONEPEZIL HCL 5 MG TABLET (FP) PO SCH (21:23)
[2016-06-29] MEDS: POLYETHYLENE GLYCOL 3350 119 GM BTL PO SCH ×2 (10:57→21:19)
[2016-06-29] MEDS: SODIUM CHLORIDE 1,000 ML IV SCH ×3 (14:00→14:04)
[2016-06-29] MEDS: SILVER SULFADIAZINE 1% TOP CREAM 50 GM JAR TP SCH ×2 (14:02→21:19)
[2016-06-29] MEDS ORDERED: BISACODYL 5 MG TABLET.DR (FP) PO ONE (15:53)
--- NOTE | 2016-06-29 16:03 | PN ---
Progress Note (short form) - Note Progress Note: Awake, alert mildly confused. Vital Signs Temp 97.9 F 06/29/16 15:40 Pulse 82 06/29/16 15:40 Resp 18 06/29/16 15:40 BP 119/81 06/29/16 15:40 Pulse Ox 98 06/29/16 09:00 Intake & Output 06/28/16 06/29/16 06/29/16 23:59 11:59 23:59 Intake Total 500 504 Balance 500 504 Intake: IV 500 504 D5-1/2Ns+20 Meq KCl - 1, 500 504 000 ml @ 42 mls/hr IV ASDIR [facility] Rx#:[id number] Other: Voiding Method Incontinent Incontinent # Unmeasured Voids Void 3 Neck-no JVD Lungs clear Heart S1S2 regular, 2/6 SM at the apex Abdomen soft, NT Ext-no CCE Hypophonia, generalized tremor, Bradikinesia, UA Cx- Enterococcus 100., 000-[id number] NOT RX WITH ABX UNLESS DEVELOPS SYMPTOMS. -Amp S, UA 2 WBC, 28 RBC-contamination vs low grade uti Current Active Problems Problem Status Diagnosed Failure to thrive in adult Acute Fecal impaction of colon Acute Malnutrition of moderate degree Acute Pressure ulcer of back Acute Small bowel obstruction Acute pLAN pt, Sinemet TID 25/100 started, ASA Continue laxatives, observe for BM D/C planning Problem List - Problems (1) Functional gait disorder with tremor Code(s): R26.9 - UNSPECIFIED ABNORMALITIES OF GAIT AND MOBILITY R25.1 - TREMOR, UNSPECIFIED (2) Parkinson disease, symptomatic Code(s): G20 - PARKINSON'S DISEASE (3) Failure to thrive in adult Code(s): R62.7 - ADULT FAILURE TO THRIVE (4) Fecal impaction of colon Code(s): K56.41 - FECAL IMPACTION (5) Malnutrition of moderate degree Code(s): E44.0 - MODERATE PROTEIN-CALORIE MALNUTRITION (6) Pressure ulcer of back Code(s): L89.109 - PRESSURE ULCER OF UNSP PART OF BACK, UNSPECIFIED STAGE Qualifiers: Pressure ulcer stage: stage 2 Qualified Code(s): L89.102 - Pressure ulcer of unspecified part of back, stage 2
[2016-06-29] MEDS ORDERED: MAGNESIUM HYDROX 2400MG/30ML ORAL SUSPENSION 30 ML CUP PO PRN (16:06)
[2016-06-29] MEDS: D5-1/2NS+20 MEQ KCL - 1,000 ML IV SCH (21:16)
[2016-06-29] MEDS: DONEPEZIL HCL 5 MG TABLET (FP) PO SCH (21:19)
--- NOTE | 2016-06-30 08:00 | PN ---
Progress Note, Physician Chief Complaint: Awake, alert n NAD +BM History of Present Illness: Advanced Parkinson"s disease. Unstable gait. Falls. Weight loss. Cholelithiasis. HTN/ Dementia. CRI. Hypokalemia, hypomagnesemia. EST MIBI 2012-negative - Current Medication List Current Medications: Active Medications Aspirin (Asa -) 81 mg PO DAILY [facility] Carbidopa/Levodopa (Sinemet *Cr* 25/100 -) 1 combo PO TID [facility] Last Admin: 06/30/16 05:45 Dose: 1 combo Donepezil HCl (Aricept -) 5 mg PO HS [facility] Last Admin: 06/29/16 21:19 Dose: 5 mg Sodium Chloride (Normal Saline -) 1,000 mls @ 125 mls/hr IV ASDIR [facility] Last Admin: 06/29/16 14:04 Dose: Not Given Potassium Chloride/Dextrose/Sod Cl (D5-1/2ns+20 Meq Kcl -) 1,000 mls @ 42 mls/ hr IV ASDIR [facility] Last Admin: 06/29/16 21:16 Dose: Not Given Magnesium Hydroxide (Milk Of Magnesia -) 30 ml PO DAILY PRN PRN Reason: CONSTIPATION Last Admin: 06/29/16 17:57 Dose: 30 ml Polyethylene Glycol (Miralax (For Daily Use) -) 17 gm PO BID [facility] Last Admin: 06/29/16 21:19 Dose: 17 gm Silver Sulfadiazine (Silvadene -) 1 applic TP BID [facility] Last Admin: 06/29/16 21:19 Dose: 1 applic - Objective Vital Signs: Vital Signs Temperature 97.7 F 06/30/16 05:17 Pulse Rate 74 06/30/16 05:17 Respiratory Rate 18 06/30/16 05:17 Blood Pressure 102/72 06/30/16 05:17 O2 Sat by Pulse Oximetry (%) 98 06/29/16 20:19 Constitutional: Yes: No Distress, Calm Eyes: Yes: Conjunctiva Clear, EOM Intact HENT: Yes: Atraumatic, Normocephalic. No: Drooling, Epistaxis Neck: Yes: Supple. No: Lymphadenopathy Cardiovascular: Yes: Regular Rate and Rhythm, Murmur, S1, S2. No: JVD Respiratory: Yes: Regular, CTA Bilaterally Gastrointestinal: Yes: Normal Bowel Sounds, Soft. No: Abdomen, Obese, Ascites ...Rectal Exam: Yes: Deferred Genitourinary: No: Anuria Breast(s): Yes: WNL Musculoskeletal: No: Joint Swelling, Muscle Pain Extremities: No: Amputation, Calf Tenderness, Cold, Cyanosis Peripheral Pulses WNL: No Integumentary: Yes: Pressure Ulcer Neurological: Yes: Alert. No: Aphasia Psychiatric: Yes: WNL Labs: CBC, BMP 06/27/16 06:15 06/27/16 06:15 Problem List - Problems (1) Functional gait disorder with tremor Assessment/Plan: Pt according to family is unable to eat or drink enough. Advanced Parkinson's. Will check B12, Folate swallow eval. Code(s): R26.9 - UNSPECIFIED ABNORMALITIES OF GAIT AND MOBILITY R25.1 - TREMOR, UNSPECIFIED (2) Parkinson disease, symptomatic Assessment/Plan: Neurology consult. Previously poorly tolerated Sinemet and stopped. Code(s): G20 - PARKINSON'S DISEASE (3) Failure to thrive in adult Assessment/Plan: Severe weight loss, cachexia. Will start supplements PT eval, Swallow eval. Code(s): R62.7 - ADULT FAILURE TO THRIVE (4) Fecal impaction of colon Assessment/Plan: Moving BM now well Code(s): K56.41 - FECAL IMPACTION (5) Malnutrition of moderate degree Assessment/Plan: Ensure plus TID Code(s): E44.0 - MODERATE PROTEIN-CALORIE MALNUTRITION (6) Pressure ulcer of back Assessment/Plan: Wound care. Code(s): L89.109 - PRESSURE ULCER OF UNSP PART OF BACK, UNSPECIFIED STAGE Qualifiers: Pressure ulcer stage: stage 2 Qualified Code(s): L89.102 - Pressure ulcer of unspecified part of back, stage 2
--- NOTE | 2016-06-30 08:02 | DS ---
Physical Examination Vital Signs: Vital Signs Temperature 97.7 F 06/30/16 05:17 Pulse Rate 74 06/30/16 05:17 Respiratory Rate 18 06/30/16 05:17 Blood Pressure 102/72 06/30/16 05:17 O2 Sat by Pulse Oximetry (%) 98 06/29/16 20:19 Constitutional: Yes: No Distress, Calm Eyes: Yes: Conjunctiva Clear, EOM Intact HENT: Yes: Atraumatic, Normocephalic Neck: Yes: Supple, Trachea Midline Cardiovascular: Yes: Regular Rate and Rhythm, Murmur. No: Bradycardia, Tachycardia, Rub Respiratory: Yes: Regular, CTA Bilaterally Gastrointestinal: Yes: Normal Bowel Sounds, Soft. No: Abdomen, Obese, Ascites, Tenderness, Tenderness, Rebound ...Rectal Exam: Yes: Deferred Renal/: No: Anuria Musculoskeletal: Yes: WNL Extremities: No: Amputation, Calf Tenderness, Cyanosis Edema: No Integumentary: Yes: Pressure Ulcer Neurological: Yes: Alert Psychiatric: Yes: WNL Labs: CBC, BMP 06/27/16 06:15 06/27/16 06:15 Discharge Summary Reason For Visit: Fecal impaction, Parkinson's, failure to thrive Current Active Problems Failure to thrive in adult (Acute) Fecal impaction of colon (Acute) Malnutrition of moderate degree (Acute) Pressure ulcer of back (Acute) Small bowel obstruction (Acute) Condition: Stable - Instructions Referrals: Tucker Bennett MD [Primary Care Provider] - Disposition: HALFWAY FACILITY - Home Medications Comprehensive Discharge Medication List: Ambulatory Orders Donepezil HCl [Aricept -] 5 mg PO DAILY 06/26/16 Potassium Chloride [K-Dur -] 10 meq PO DAILY 06/26/16 Simvastatin [Zocor -] 20 mg PO HS 06/26/16 Carbidopa-Levodopa 25-100 Tab PO TID 06/29/16 Toprol Xl 25 PO DAILY 06/29/16
[2016-06-30] MEDS: SILVER SULFADIAZINE 1% TOP CREAM 50 GM JAR TP SCH (09:49)
[2016-06-30] MEDS: POLYETHYLENE GLYCOL 3350 119 GM BTL PO SCH (09:49)
[2016-06-30] MEDS ORDERED: ASPIRIN 81 MG CHEWABLE TABLETS PO SCH (10:00)
[2016-06-30 11:17] VITALS: BP 100/60; PULSE 69; TEMP 98.4
== END 2016-06-30 11:10 | DRG 57 ==
LOC: JER 11:45 → JERBED 15:25 → J6S 18:27
PROVIDERS: ADMIT Internal Medicine; ATTEND Internal Medicine
DX: G20 Parkinson's disease (principal); E44.0 Moderate protein-calorie malnutrition; Z68.1 Body mass index [BMI] 19.9 or less, adult; F02.80 Dementia in other diseases classified elsewhere, unspecified severity, without behavioral disturbance, psychotic disturbance, mood disturbance, and anxiety; R26.81 Unsteadiness on feet; E87.6 Hypokalemia; K56.41 Fecal impaction; R62.7 Adult failure to thrive; E83.42 Hypomagnesemia; E78.5 Hyperlipidemia, unspecified; K80.80 Other cholelithiasis without obstruction; M19.90 Unspecified osteoarthritis, unspecified site; F41.8 Other specified anxiety disorders; L89.102 Pressure ulcer of unspecified part of back, stage 2; I12.9 Hypertensive chronic kidney disease with stage 1 through stage 4 chronic kidney disease, or unspecified chronic kidney disease; N18.9 Chronic kidney disease, unspecified; E88.89 Other specified metabolic disorders
CPT/HCPCS: 36415; 71010-TC; 74000-TC; 74176-TC; 80048; 80053; 81003; 81015; 82607; 82746; 83735; 84439; 84443; 85025; 85027; 87086; 87186; 93005; 93010; 97116-GP; 97162-PG; 99283-25; Q9967

== ENCOUNTER 2016-09-02 10:43 | Inpatient (IN) | payer OTHER, MEDICARE ==
--- NOTE | 2016-09-02 11:02 | PDOC ---
History of Present Illness - General Chief Complaint: Constipation Stated Complaint: CONSTIPATION Time Seen by Provider: 09/02/16 10:56 - History of Present Illness Initial Comments: 09/02/16 11:20 This is an 86 yo F with PMH of Advanced Parkinson"s disease, constipation, Cholelithiasis, Dementia, CRI, Hypokalemia, hypomagnesemia, HTN, HLD, OA, recently admitted June for r/o SBO, fount to be fecally impacted, who presents due to constipation x 8d. Patient denies n/v and reports intermittent abd pain. Denies f/c. Patient unable to speak well, most of the history is obtained from record and patients aid. Patient states she cut down on laxatives because they are unpleasant PCP Dr Bennett 09/02/16 14:33 09/02/16 15:59 09/02/16 16:18 Past History - Travel Traveled outside of the country in the last 30 days: No Close contact w/someone who was outside of country & ill: No - Past Medical History Allergies/Adverse Reactions: Allergies Allergy/AdvReac Type Severity Reaction Status Date / Time No Known Allergies Allergy Verified 09/02/16 11:24 Home Medications: Ambulatory Orders Donepezil HCl [Aricept -] 5 mg PO DAILY 06/26/16 Potassium Chloride [K-Dur -] 10 meq PO DAILY 06/26/16 Simvastatin [Zocor -] 20 mg PO HS 06/26/16 Carbidopa-Levodopa 25-100 Tab PO TID 06/29/16 Toprol Xl 25 PO DAILY 06/29/16 Aspirin [ASA -] 81 mg PO DAILY tab.chew 06/30/16 Carbidopa/Levodopa *Cr* 25/100 [Sinemet *Cr* 25/100 -] 1 combo PO TID #120 tab 06/30/16 Lactulose (Oral Use) [Cephulac -] 20 gm PO DAILY 90 Days 06/30/16 Magnesium Hydrox 2400MG/30Ml [Milk of Magnesia -] 30 ml PO DAILY PRN #30 ml 01/06 Polyethylene Glycol 3350 [Miralax 119 gm Btl -] 17 gm PO BID bottle 06/30/16 Silver Sulfadiazine 1% Top Cr [Silvadene -] 1 applic TP BID jar 06/30/16 Dementia: Yes HTN: Yes Hypercholesterolemia: Yes Psychiatric Problems: Yes (Anxiety disorder) - Surgical History Abdominal Surgery: Yes (HERNIA) Neurologic Surgery: No Orthopedic Surgery: Yes (Bilateral Knees) - Immunization History Immunization Up to Date: Yes - Psycho/Social/Smoking Cessation Hx Anxiety: Yes Suicidal Ideation: No Smoking Status: No Smoking History: Never smoked Have you smoked in the past 12 months: No Number of Cigarettes Smoked Daily: 0 Hx Alcohol Use: No Drug/Substance Use Hx: No Substance Use Type: None Hx Substance Use Treatment: No Review of Systems - Review of Systems Able to Perform ROS?: Yes (difficulty speaking) Is the patient limited Luxembourgish proficient: No Constitutional: No: Chills, Fever Respiratory: No: Shortness of Breath Cardiac (ROS): No: Chest Pain ABD/GI: Yes: Abdominal cramping (occasional). No: Difficulty Swallowing, Nausea , Vomiting : No: Dysuria *Physical Exam - Physical Exam Comments: 09/02/16 14:34 GENERAL: NAD, aaox3 HEENT: perrla eomi, atraumatic, no scleral icterus CV: rrr s1s2 PULM: cta b/l GI: mildly tender diffusely, full colon, no mass, slightly increased bowel sounds EXTREMITIES: nonedematous 09/02/16 14:57 09/02/16 15:17 ED Treatment Course - LABORATORY CBC & Chemistry Diagram: 09/02/16 12:22 09/02/16 12:22 Medical Decision Making - Medical Decision Making 09/02/16 14:33 patient present with clinical picture consistent with fecal impaction r/o bowel obstruction -cbc diff, cmp, lactic acid -kub -miralax, milk of magnesia -fleet enema x 2 kub mildly distended loops of bowel, no obstruction 09/02/16 15:21 cbc unremarkable, cmp signs of volume depletion 09/02/16 15:21 09/02/16 16:16 Patient had a BM *DC/Admit/Observation/Transfer Diagnosis at time of Disposition: Fecal impaction of colon, Constipation - Discharge Dispostion Disposition: HOME Condition at time of disposition: Good Admit: No - Patient Instructions Additional Instructions: Please continue taking your prescribed laxatives, they will help you avoid constipation
[2016-09-02 11:24] VITALS: BMI 20.7
[2016-09-02] MEDS ORDERED: SODIUM CHLORIDE 500 ML IV STA (11:29)
[2016-09-02] MEDS ORDERED: POLYETHYLENE GLYCOL 3350 119 GM BTL PO ONE (11:30)
[2016-09-02] MEDS ORDERED: MAGNESIUM HYDROX 2400MG/30ML ORAL SUSPENSION 30 ML CUP PO ONE (11:30)
[2016-09-02] MEDS ORDERED: SODIUM PHOSPHATE/NA BIPHOS 133 ML ENEMA PR ONE ×2 (11:31→14:58)
--- NOTE | 2016-09-02 12:37 | PDOC ---
Attending Attestation - Resident Resident Name: Aurelia Jorge - ED Attending Attestation I have performed the following: I have examined & evaluated the patient, The case was reviewed & discussed with the resident, I agree w/resident's findings & plan, Exceptions are as noted - HPI HPI: 09/02/16 12:36 86-year-old female presents with a need for worsening constipation. Has history of same, has been rule out for obstruction in the past and was treated with cathartics. - Physicial Exam PE: 09/02/16 12:36 Afebrile. Well-appearing. Abdomen is slightly distended but soft and nontender, no peritoneal findings - Medical Decision Making 09/02/16 12:36 Patient seen and evaluated with the resident. I agree with the overall evaluation, assessment, and management with the following summary of visit: 86-year-old female with acute on chronic constipation, generally well- appearing. Rule out obstruction. Labs, abdominal x-ray Bowel regimen Reassess and dispo
[2016-09-02 12:42] LABS: BASOPHIL 0.8 % (0-2.0); EOSINOPHIL 0.5 % (0-4.5); MCH 28.6 pg (25.7-33.7); MCHC 33.8 g/dl (32.0-36.0); MEAN CELL VOLUME 84.5 fl (80-96); MEAN PLT VOLUME 7.1 fl (7.5-11.1); NEUTROPHILS 57.8 % (42.8-82.8); PLATELET COUNT 194 K/MM3 (134-434); RDW 13.9 % (11.6-15.6); WHITE BLOOD COUNT 4.3 K/mm3 (4.0-10.0)
[2016-09-02 12:58] LABS: ALBUMIN 3.9 g/dl (3.4-5.0); ANION GAP 9 (8-16); BILIRUBIN,TOTAL 0.5 mg/dL (0.2-1.0); CALCIUM 9.5 mg/dL (8.5-10.1); CO2 27 mmol/L (21-32); COCKROFT - GAULT 47.1155; CREATININE 0.7 mg/dL (0.55-1.02); GLUCOSE,RANDOM 89 mg/dL (74-106); SGPT/ALT 17 U/L (12-78); TOT PROT 7.3 g/dl (6.4-8.2)
[2016-09-02 12:59] LABS: ALK PHOS 105 U/L (45-117)
[2016-09-02 13:02] LABS: SGOT/AST 22 U/L (15-37)
[2016-09-02] MEDS ORDERED: MAGNESIUM HYDROX 2400MG/30ML ORAL SUSPENSION 30 ML CUP PO PRN (19:32)
--- NOTE | 2016-09-02 19:41 | HP ---
Admitting History and Physical - Admission Chief Complaint: 86 y.o F was brought to [facility] ER because she was not able to have BM x8 days despite bowel regimen, anable to tolerate PO food, fluids. Was admitted for bowel obstruction in 06/2016 History of Present Illness: Recurrent fecal impaction. Advanced Parkinson"s disease. Unstable gait. Falls. Weight loss. Cholelithiasis. HTN/ Dementia. CRI. Hypokalemia, hypomagnesemia. 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 Cardiovascular: Yes: HTN, Hyperlipdemia Gastrointestinal: Yes: Constipation, Other Hepatobiliary: Yes: Cholelithiasis Renal/: Yes: Renal Inusuff Psych: Yes: Depression Musculoskeletal: Yes: Osteoarthritis - Smoking History Smoking history: Never smoked Have you smoked in the past 12 months: No Aproximately how many cigarettes per day: 0 - Alcohol/Substance Use Hx Alcohol Use: No Home Medications - Allergies Allergies/Adverse Reactions: Allergies Allergy/AdvReac Type Severity Reaction Status Date / Time No Known Allergies Allergy Verified 09/02/16 11:24 - Home Medications Home Medications: Ambulatory Orders Donepezil HCl [Aricept -] 5 mg PO DAILY 06/26/16 Potassium Chloride [K-Dur -] 10 meq PO DAILY 06/26/16 Simvastatin [Zocor -] 20 mg PO HS 06/26/16 Carbidopa-Levodopa 25-100 Tab 1 tab PO TID 06/29/16 Toprol Xl 25 mg PO DAILY 06/29/16 Aspirin [ASA -] 81 mg PO DAILY tab.chew 06/30/16 Carbidopa/Levodopa *Cr* 25/100 [Sinemet *Cr* 25/100 -] 1 combo PO TID #120 tab 06/30/16 Lactulose (Oral Use) [Cephulac -] 20 gm PO DAILY 90 Days 06/30/16 Magnesium Hydrox 2400MG/30Ml [Milk of Magnesia -] 30 ml PO DAILY PRN #30 ml 01/06 Polyethylene Glycol 3350 [Miralax 119 gm Btl -] 17 gm PO BID bottle 06/30/16 Silver Sulfadiazine 1% Top Cr [Silvadene -] 1 applic TP BID jar 06/30/16 Family Disease History - Family Disease History Family History: Unable to Obtain Family Disease History: Respiratory: Daughter Review of Systems Unable to obtain ROS, reason: Severe parkinson's diseas Physical Examination Vital Signs: Vital Signs Temperature 98.1 F 09/02/16 10:43 Pulse Rate 54 L 09/02/16 10:43 Respiratory Rate 18 09/02/16 10:43 Blood Pressure 162/59 09/02/16 10:43 O2 Sat by Pulse Oximetry (%) 100 09/02/16 10:43 Constitutional: Yes: Anxious, Cachectic (Severe malnutrition.), Moderate Distress Eyes: Yes: Conjunctiva Clear, EOM Intact HENT: Yes: Atraumatic, Normocephalic, Hoarseness. No: Epistaxis Neck: Yes: Decreased ROM, Rigid. No: Lymphadenopathy, Tenderness, Thyromegaly Cardiovascular: Yes: Regular Rate and Rhythm Respiratory: Yes: Regular, CTA Bilaterally. No: Cough, Diminished Gastrointestinal: Yes: Normal Bowel Sounds, Soft. No: Abdomen, Obese, Hematemesis, Hyperactive Bowel Sounds, Pulsatile Mass, Tenderness ...Rectal Exam: Yes: Deferred Renal/: No: Anuria Breast(s): Yes: Left, Right. No: Discharge from Nipple, Mass Musculoskeletal: Yes: Joint Stiffness, Muscle Weakness. No: Joint Swelling, Muscle Pain Extremities: No: Amputation, Calf Tenderness, Cold, Cyanosis Edema: No Peripheral Pulses WNL: No Neurological: Yes: Alert, Confusion, Dysarthria, Weakness. No: Aphasia, Lethargy, Seizure, Unresponsive Psychiatric: Yes: Alert. No: Agitated, Suicidal Ideation Labs: CBC, BMP 09/02/16 12:22 09/02/16 12:22 Imaging - Results X-ray: Report Reviewed (Possible SBO or partial SBO, possible herniated bowel at pubic rami) Problem List - Problems (1) Fecal impaction of colon Assessment/Plan: R/O SBO or partial SBO, r/o herniation at pubic rami. Pt was seen in the ER-after enema started moving bowel. Will continue bowel regimen Code(s): K56.41 - FECAL IMPACTION (2) Protein-calorie malnutrition, severe Assessment/Plan: Food supplements, protein supplements. Continue IV fluids for now Follow electrolytes Code(s): E43 - UNSPECIFIED SEVERE PROTEIN-CALORIE MALNUTRITION (3) Parkinson disease Assessment/Plan: Pt was seen by Dr Julio in June Will continue Sinemet, Aricept Code(s): G20 - PARKINSON'S DISEASE
[2016-09-02] MEDS: D5-1/2NS+20 MEQ KCL - 1,000 ML IV SCH ×2 (21:00→22:37)
[2016-09-02] MEDS: POLYETHYLENE GLYCOL 3350 119 GM BTL PO SCH (22:00)
[2016-09-02 22:25] LABS: URINE APPEARANCE CLEAR; URINE BILIRUBIN NEGATIVE (NEGATIVE); URINE BLOOD NEGATIVE (NEGATIVE); URINE COLOR YELLOW; URINE GLUCOSE (UA) NEGATIVE (NEGATIVE); URINE KETONE TRACE (NEGATIVE); URINE LEUK ESTERASE NEGATIVE (NEGATIVE); URINE NITRITE NEGATIVE (NEGATIVE); URINE PROTEIN NEGATIVE (NEGATIVE); URINE UROBILINOGEN NEGATIVE E.U./dl (0.2-1.0)
[2016-09-03] MEDS: ATORVASTATIN CA 10 MG TABLET (FP) PO SCH ×2 (00:37→23:01)
[2016-09-03] MEDS: SILVER SULFADIAZINE 1% TOP CREAM 50 GM JAR TP SCH ×3 (00:37→23:01)
[2016-09-03 07:40] LABS: EOSINOPHIL 0.6 % (0-4.5); MCH 28.9 pg (25.7-33.7); MCHC 34.3 g/dl (32.0-36.0); MEAN CELL VOLUME 84.3 fl (80-96); NEUTROPHILS 59.4 % (42.8-82.8); PLATELET COUNT 175 K/MM3 (134-434); RDW 13.7 % (11.6-15.6); WHITE BLOOD COUNT 3.9 K/mm3 (4.0-10.0)
[2016-09-03 08:02] LABS: ANION GAP 8 (8-16); CALCIUM 9.5 mg/dL (8.5-10.1); CO2 31 mmol/L (21-32); GLUCOSE,RANDOM 81 mg/dL (74-106); MAGNESIUM 2.2 mg/dL (1.8-2.4)
--- NOTE | 2016-09-03 08:02 | PN ---
Progress Note, Physician Chief Complaint: Poor PO intake, NAD BM only after enemas yesterday. History of Present Illness: Recurrent fecal impaction. Advanced Parkinson"s disease. Unstable gait. Falls. Weight loss. Cholelithiasis. HTN/ Dementia. CRI. Hypokalemia, hypomagnesemia. EST MIBI 2013-negative - Current Medication List Current Medications: Active Medications Aspirin (Asa -) 81 mg PO DAILY [facility] Atorvastatin Calcium (Lipitor -) 10 mg PO HS [facility] Last Admin: 09/03/16 00:37 Dose: 10 mg Carbidopa/Levodopa (Sinemet *Cr* 25/100 -) 1 combo PO TID [facility] Last Admin: 09/03/16 06:12 Dose: 1 combo Donepezil HCl (Aricept -) 5 mg PO DAILY [facility] Potassium Chloride/Dextrose/Sod Cl (D5-1/2ns+20 Meq Kcl -) 1,000 mls @ 75 mls/ hr IV ASDIR [facility] Last Admin: 09/02/16 22:37 Dose: 75 mls/hr Lactulose (Cephulac (Oral Use)) 20 gm PO DAILY [facility] Magnesium Hydroxide (Milk Of Magnesia -) 30 ml PO DAILY PRN PRN Reason: CONSTIPATION Metoprolol Succinate (Toprol Xl -) 25 mg PO DAILY [facility] Polyethylene Glycol (Miralax (For Daily Use) -) 17 gm PO BID [facility] Last Admin: 09/02/16 22:00 Dose: 17 gm Potassium Chloride (K-Dur -) 10 meq PO DAILY [facility] Silver Sulfadiazine (Silvadene -) 1 applic TP BID [facility] Last Admin: 09/03/16 00:37 Dose: 1 applic - Objective Vital Signs: Vital Signs Temperature 97.6 F 09/03/16 06:45 Pulse Rate 65 09/03/16 06:45 Respiratory Rate 16 09/03/16 06:45 Blood Pressure 128/70 09/03/16 06:45 O2 Sat by Pulse Oximetry (%) 99 09/03/16 06:45 Constitutional: Yes: Cachectic, Pallor, Poor Hygeine Eyes: Yes: Conjunctiva Clear, EOM Intact HENT: Yes: Atraumatic, Normocephalic Neck: Yes: Supple, Trachea Midline, Decreased ROM, Rigid Cardiovascular: Yes: Regular Rate and Rhythm, S1, S2. No: Bradycardia, Tachycardia, JVD, Rub Respiratory: Yes: Regular, CTA Bilaterally Gastrointestinal: Yes: Normal Bowel Sounds, Soft. No: Abdomen, Obese, Ascites, Hypoactive Bowel Sounds, Palpable Mass, Rectal Bleeding, Tenderness, Rebound, Vomiting ...Rectal Exam: Yes: Sphincter Tone Normal, Other (small amount of soft stool). No: Mass Genitourinary: No: Anuria, Bladder Distention, CVA Tenderness - Left, CVA Tenderness - Right Breast(s): Yes: Left, Right. No: Mass Musculoskeletal: Yes: Muscle Weakness Extremities: No: Calf Tenderness, Cold, Deformity Edema: No Peripheral Pulses WNL: Yes Integumentary: Yes: WNL Neurological: Yes: Alert, Oriented (X2) Psychiatric: Yes: Alert, Oriented (X2). No: Agitated, Suicidal Ideation Labs: CBC, BMP 09/03/16 06:34 - ....Imaging Cat Scan: Report Reviewed (No SBO Cholelithiasis Nephrolithiasis Fecal material in the bowel No SBO) Problem List - Problems (1) Fecal impaction of colon Assessment/Plan: Pt had several episodes of fecal impaction. There is a significant risk of recurrent bowel obstruction in the future. Will continue bowel regimen.. Code(s): K56.41 - FECAL IMPACTION (2) Protein-calorie malnutrition, severe Assessment/Plan: Severe calorie-protein malnutrition requeres follow up by nursing. Food supplements, protein supplements. Continue IV fluids for now Follow electrolytes Code(s): E43 - UNSPECIFIED SEVERE PROTEIN-CALORIE MALNUTRITION (3) Parkinson disease Assessment/Plan: Pt was seen by Dr Julio in June Will continue Sinemet, Aricept Code(s): G20 - PARKINSON'S DISEASE (4) Leukopenia Assessment/Plan: No symptoms of acute infection. Will do blood cx if T> 101 Code(s): D72.819 - DECREASED WHITE BLOOD CELL COUNT, UNSPECIFIED Qualifiers: Leukopenia type: unspecified Qualified Code(s): D72.819 - Decreased white blood cell count, unspecified
[2016-09-03 08:06] LABS: ALK PHOS 106 U/L (45-117); BILIRUBIN,TOTAL 0.6 mg/dL (0.2-1.0); COCKROFT - GAULT 54.9695; CREATININE 0.6 mg/dL (0.55-1.02); PHOSPHOROUS 3.1 mg/dL (2.5-4.9); SGOT/AST 16 U/L (15-37); SGPT/ALT 9 U/L (12-78); TOT PROT 7.5 g/dl (6.4-8.2)
[2016-09-03] MEDS ORDERED: BISACODYL 10 MG SUPP.RECT RC PRN (08:14)
[2016-09-03] MEDS ORDERED: DONEPEZIL HCL 5 MG TABLET (FP) PO SCH (10:00)
[2016-09-03] MEDS: METOPROLOL SUCCINATE 25 MG TAB.SR.24H (FP) PO SCH (12:50)
[2016-09-03] MEDS: DONEPEZIL HCL 5 MG TABLET (FP) PO SCH (12:51)
[2016-09-03] MEDS: POTASSIUM CHLORIDE TABS 10 MEQ TABLET.ER (FP) PO SCH (12:56)
[2016-09-03] MEDS: POLYETHYLENE GLYCOL 3350 119 GM BTL PO SCH ×2 (12:56→23:01)
[2016-09-03] MEDS: ASPIRIN 81 MG CHEWABLE TABLETS PO SCH (12:56)
[2016-09-03] MEDS: LACTULOSE 20 GM/30 ML UDC (FOR ORAL USE ONLY) PO SCH (12:56)
[2016-09-03] MEDS: D5-1/2NS+20 MEQ KCL - 1,000 ML IV SCH ×2 (18:21→23:01)
[2016-09-04] MEDS: D5-1/2NS+20 MEQ KCL - 1,000 ML IV SCH ×2 (06:41→20:43)
--- NOTE | 2016-09-04 08:08 | PN ---
Progress Note, Physician Chief Complaint: Poor PO intake, NAD BM only after enemas . Spoke to Francheska [phone] and updated on mom's condition.. History of Present Illness: Recurrent fecal impaction. Advanced Parkinson"s disease. Unstable gait. Falls. Weight loss. Cholelithiasis. HTN/ Dementia. CRI. Hypokalemia, hypomagnesemia. EST MIBI 2013-negative - Current Medication List Current Medications: Active Medications Aspirin (Asa -) 81 mg PO DAILY [facility] Last Admin: 09/03/16 12:56 Dose: 81 mg Atorvastatin Calcium (Lipitor -) 10 mg PO HS [facility] Last Admin: 09/03/16 23:01 Dose: 10 mg Bisacodyl (Dulcolax Suppository -) 10 mg RC DAILY PRN PRN Reason: CONSTIPATION Carbidopa/Levodopa (Sinemet *Cr* 25/100 -) 1 combo PO TID [facility] Last Admin: 09/04/16 06:40 Dose: 1 combo Donepezil HCl (Aricept -) 5 mg PO DAILY [facility] Last Admin: 09/03/16 12:51 Dose: 5 mg Potassium Chloride/Dextrose/Sod Cl (D5-1/2ns+20 Meq Kcl -) 1,000 mls @ 75 mls/ hr IV ASDIR [facility] Last Admin: 09/04/16 06:41 Dose: 75 mls/hr Lactulose (Cephulac (Oral Use)) 20 gm PO DAILY [facility] Last Admin: 09/03/16 12:56 Dose: 20 gm Magnesium Hydroxide (Milk Of Magnesia -) 30 ml PO DAILY PRN PRN Reason: CONSTIPATION Metoprolol Succinate (Toprol Xl -) 25 mg PO DAILY [facility] Last Admin: 09/03/16 12:50 Dose: 25 mg Polyethylene Glycol (Miralax (For Daily Use) -) 17 gm PO BID [facility] Last Admin: 09/03/16 23:01 Dose: 17 gm Potassium Chloride (K-Dur -) 10 meq PO DAILY [facility] Last Admin: 09/03/16 12:56 Dose: 10 meq Silver Sulfadiazine (Silvadene -) 1 applic TP BID [facility] Last Admin: 09/03/16 23:01 Dose: 1 applic - Objective Vital Signs: Vital Signs Temperature 97.9 F 09/04/16 06:00 Pulse Rate 71 09/04/16 06:00 Respiratory Rate 18 09/04/16 06:00 Blood Pressure 139/80 09/04/16 06:00 O2 Sat by Pulse Oximetry (%) 95 09/03/16 21:00 Constitutional: Yes: Cachectic, Moderate Distress Eyes: Yes: Conjunctiva Clear, EOM Intact HENT: Yes: Atraumatic, Normocephalic. No: Nasal Congestion Neck: Yes: Decreased ROM, Rigid. No: Lymphadenopathy, Thyromegaly Cardiovascular: Yes: Regular Rate and Rhythm, S1, S2. No: JVD, Gallop, Rub Respiratory: Yes: Regular, CTA Bilaterally Gastrointestinal: Yes: Normal Bowel Sounds, Soft. No: Abdomen, Obese, Palpable Mass, Tenderness Genitourinary: No: Anuria Breast(s): Yes: WNL, Left, Right Musculoskeletal: Yes: Muscle Weakness Extremities: No: Calf Tenderness, Cold, Cyanosis Edema: No Integumentary: Yes: Pressure Ulcer (back-stage 2 pressure injury) Neurological: Yes: Alert, Oriented (X1) Psychiatric: Yes: Alert. No: Agitated, Suicidal Ideation Labs: CBC, BMP 09/03/16 06:34 09/03/16 06:34 Problem List - Problems (1) Fecal impaction of colon Assessment/Plan: Pt had several episodes of fecal impaction. There is a significant risk of recurrent bowel obstruction in the future. Will continue bowel regimen.. Code(s): K56.41 - FECAL IMPACTION (2) Protein-calorie malnutrition, severe Assessment/Plan: Severe calorie-protein malnutrition requeres follow up by nursing. Food supplements, protein supplements. Continue IV fluids for now Follow electrolytes Code(s): E43 - UNSPECIFIED SEVERE PROTEIN-CALORIE MALNUTRITION (3) Parkinson disease Assessment/Plan: Pt was seen by Dr Julio in June Will continue Sinemet, Aricept Code(s): G20 - PARKINSON'S DISEASE (4) Leukopenia Assessment/Plan: No symptoms of acute infection. Will do blood cx if T> 101 Code(s): D72.819 - DECREASED WHITE BLOOD CELL COUNT, UNSPECIFIED Qualifiers: Leukopenia type: unspecified Qualified Code(s): D72.819 - Decreased white blood cell count, unspecified (5) Pressure injury of skin Assessment/Plan: Wound care. Code(s): L89.90 - PRESSURE ULCER OF UNSPECIFIED SITE, UNSPECIFIED STAGE Qualifiers: Pressure ulcer location: back, unspecified location Pressure ulcer stage: stage 2 Qualified Code(s): L89.102 - Pressure ulcer of unspecified part of back, stage 2
--- NOTE | 2016-09-04 08:12 | DS ---
Physical Examination Vital Signs: Vital Signs Temperature 97.9 F 09/04/16 06:00 Pulse Rate 71 09/04/16 06:00 Respiratory Rate 18 09/04/16 06:00 Blood Pressure 139/80 09/04/16 06:00 O2 Sat by Pulse Oximetry (%) 95 09/03/16 21:00 Constitutional: Yes: No Distress, Anxious, Cachectic, Pallor Eyes: Yes: Conjunctiva Clear, EOM Intact HENT: Yes: Atraumatic, Normocephalic, Hoarseness. No: Drooling, Epistaxis Neck: Yes: Supple, Trachea Midline, Rigid. No: Lymphadenopathy Cardiovascular: Yes: Regular Rate and Rhythm. No: Tachycardia Respiratory: Yes: Regular, CTA Bilaterally Gastrointestinal: Yes: Normal Bowel Sounds, Soft. No: Abdomen, Obese, Ascites, Tenderness ...Rectal Exam: Yes: Deferred Renal/: No: Anuria, Bladder Distention Breast(s): Yes: WNL Musculoskeletal: Yes: Muscle Weakness Extremities: No: Amputation, Calf Tenderness, Cold, Cyanosis Edema: No Integumentary: Yes: Pressure Ulcer Neurological: Yes: Alert, Dysarthria Psychiatric: Yes: Alert. No: Agitated, Suicidal Ideation Labs: CBC, BMP 09/03/16 06:34 09/03/16 06:34 Discharge Summary Reason For Visit: DECUBITUS ULCER OF BACK; SMALL BOWEL OBSTRUCTION Current Active Problems Constipation (Acute) Fecal impaction of colon (Acute) Leukopenia (Acute) Pressure injury of skin (Acute) Protein-calorie malnutrition, severe (Acute) Condition: Guarded - Instructions Diet, Activity, Other Instructions: Please continue taking your prescribed laxatives, they will help you avoid constipation Referrals: Tucker Bennett MD [Primary Care Provider] - - Home Medications Comprehensive Discharge Medication List: Ambulatory Orders Donepezil HCl [Aricept -] 5 mg PO DAILY 06/26/16 Potassium Chloride [K-Dur -] 10 meq PO DAILY 06/26/16 Simvastatin [Zocor -] 20 mg PO HS 06/26/16 Carbidopa-Levodopa 25-100 Tab 1 tab PO TID 06/29/16 Toprol Xl 25 mg PO DAILY 06/29/16 Aspirin [ASA -] 81 mg PO DAILY tab.chew 06/30/16 Carbidopa/Levodopa *Cr* 25/100 [Sinemet *Cr* 25/100 -] 1 combo PO TID #120 tab 06/30/16 Lactulose (Oral Use) [Cephulac -] 20 gm PO DAILY 90 Days 06/30/16 Magnesium Hydrox 2400MG/30Ml [Milk of Magnesia -] 30 ml PO DAILY PRN #30 ml 01/06 Polyethylene Glycol 3350 [Miralax 119 gm Btl -] 17 gm PO BID bottle 06/30/16 Silver Sulfadiazine 1% Top Cr [Silvadene -] 1 applic TP BID jar 06/30/16
[2016-09-04] MEDS: DONEPEZIL HCL 5 MG TABLET (FP) PO SCH (10:11)
[2016-09-04] MEDS: ASPIRIN 81 MG CHEWABLE TABLETS PO SCH (10:11)
[2016-09-04] MEDS: METOPROLOL SUCCINATE 25 MG TAB.SR.24H (FP) PO SCH (10:11)
[2016-09-04] MEDS: LACTULOSE 20 GM/30 ML UDC (FOR ORAL USE ONLY) PO SCH ×2 (11:00→14:35)
[2016-09-04] MEDS: POLYETHYLENE GLYCOL 3350 119 GM BTL PO SCH ×2 (11:00→22:14)
[2016-09-04] MEDS: POTASSIUM CHLORIDE TABS 10 MEQ TABLET.ER (FP) PO SCH (11:00)
[2016-09-04] MEDS: SILVER SULFADIAZINE 1% TOP CREAM 50 GM JAR TP SCH ×2 (14:00→22:15)
[2016-09-04] MEDS ORDERED: PT OWN MED DRAWER 7, Y5N ONE ×2 (15:29→15:34)
[2016-09-04] MEDS: ATORVASTATIN CA 10 MG TABLET (FP) PO SCH (22:14)
[2016-09-05] MEDS: D5-1/2NS+20 MEQ KCL - 1,000 ML IV SCH (06:40)
--- NOTE | 2016-09-05 08:41 | PN ---
Progress Note, Physician Chief Complaint: More awake, alert, can feed herself few spoonfuls. PT-poor ballance but was able to have few( 3) steps with assist History of Present Illness: Recurrent fecal impaction. Advanced Parkinson"s disease. Unstable gait. Falls. Weight loss. Cholelithiasis. HTN/ Dementia. CRI. Hypokalemia, hypomagnesemia. EST MIBI 2013-negative - Current Medication List Current Medications: Active Medications Aspirin (Asa -) 81 mg PO DAILY [facility] Last Admin: 09/04/16 10:11 Dose: 81 mg Atorvastatin Calcium (Lipitor -) 10 mg PO HS [facility] Last Admin: 09/04/16 22:14 Dose: 10 mg Bisacodyl (Dulcolax Suppository -) 10 mg RC DAILY PRN PRN Reason: CONSTIPATION Carbidopa/Levodopa (Sinemet *Cr* 25/100 -) 1 combo PO TID [facility] Last Admin: 09/05/16 05:36 Dose: 1 combo Donepezil HCl (Aricept -) 5 mg PO DAILY [facility] Last Admin: 09/04/16 10:11 Dose: 5 mg Potassium Chloride/Dextrose/Sod Cl (D5-1/2ns+20 Meq Kcl -) 1,000 mls @ 75 mls/ hr IV ASDIR [facility] Last Admin: 09/05/16 06:40 Dose: 75 mls/hr Lactulose (Cephulac (Oral Use)) 20 gm PO DAILY [facility] Last Admin: 09/04/16 14:35 Dose: 20 gm Magnesium Hydroxide (Milk Of Magnesia -) 30 ml PO DAILY PRN PRN Reason: CONSTIPATION Metoprolol Succinate (Toprol Xl -) 25 mg PO DAILY [facility] Last Admin: 09/04/16 10:11 Dose: 25 mg Polyethylene Glycol (Miralax (For Daily Use) -) 17 gm PO BID [facility] Last Admin: 09/04/16 22:14 Dose: 17 gm Potassium Chloride (K-Dur -) 10 meq PO DAILY [facility] Last Admin: 09/04/16 11:00 Dose: Not Given Silver Sulfadiazine (Silvadene -) 1 applic TP BID [facility] Last Admin: 09/04/16 22:15 Dose: 1 applic - Objective Vital Signs: Vital Signs Temperature 98.6 F 09/05/16 06:00 Pulse Rate 58 L 09/05/16 06:00 Respiratory Rate 18 09/05/16 06:00 Blood Pressure 132/73 09/05/16 06:00 O2 Sat by Pulse Oximetry (%) 97 09/04/16 22:00 Constitutional: Yes: Anxious Eyes: Yes: Conjunctiva Clear, EOM Intact HENT: Yes: Atraumatic, Normocephalic Neck: Yes: Supple, Trachea Midline Cardiovascular: Yes: Regular Rate and Rhythm. No: Bradycardia, Tachycardia Respiratory: Yes: Regular, CTA Bilaterally Gastrointestinal: Yes: Normal Bowel Sounds, Soft. No: Abdomen, Obese ...Rectal Exam: No: Deferred Genitourinary: No: Anuria Breast(s): Yes: WNL Extremities: No: Amputation, Calf Tenderness, Cyanosis Edema: No Integumentary: Yes: Pressure Ulcer Neurological: Yes: Alert, Tremors, Unsteady Gait, Weakness. No: Aphasia, Asterixis, Ataxia, Unresponsive Psychiatric: Yes: Alert. No: Agitated, Suicidal Ideation Labs: CBC, BMP 09/03/16 06:34 09/03/16 06:34 Problem List - Problems (1) Fecal impaction of colon Assessment/Plan: Pt had several episodes of fecal impaction. There is a significant risk of recurrent bowel obstruction in the future. Will continue bowel regimen.. Code(s): K56.41 - FECAL IMPACTION (2) Protein-calorie malnutrition, severe Assessment/Plan: Severe calorie-protein malnutrition requeres follow up by nursing. Food supplements, protein supplements. Continue IV fluids for now Follow electrolytes Code(s): E43 - UNSPECIFIED SEVERE PROTEIN-CALORIE MALNUTRITION (3) Parkinson disease Assessment/Plan: Pt was seen by Dr Julio in June Will continue Sinemet, Aricept Code(s): G20 - PARKINSON'S DISEASE (4) Leukopenia Assessment/Plan: No symptoms of acute infection. Will do blood cx if T> 101 Code(s): D72.819 - DECREASED WHITE BLOOD CELL COUNT, UNSPECIFIED Qualifiers: Leukopenia type: unspecified Qualified Code(s): D72.819 - Decreased white blood cell count, unspecified (5) Pressure injury of skin Assessment/Plan: Wound care. Code(s): L89.90 - PRESSURE ULCER OF UNSPECIFIED SITE, UNSPECIFIED STAGE Qualifiers: Pressure ulcer location: back, unspecified location Pressure ulcer stage: stage 2 Qualified Code(s): L89.102 - Pressure ulcer of unspecified part of back, stage 2 (6) Toxic metabolic encephalopathy Assessment/Plan: Improved after the resolution of fecal impaction and hydration. Code(s): G92 - TOXIC ENCEPHALOPATHY
[2016-09-05] MEDS: DONEPEZIL HCL 5 MG TABLET (FP) PO SCH (10:05)
[2016-09-05] MEDS: ASPIRIN 81 MG CHEWABLE TABLETS PO SCH (10:05)
[2016-09-05] MEDS: POTASSIUM CHLORIDE TABS 10 MEQ TABLET.ER (FP) PO SCH (10:05)
[2016-09-05] MEDS: LACTULOSE 20 GM/30 ML UDC (FOR ORAL USE ONLY) PO SCH (10:06)
[2016-09-05] MEDS: POLYETHYLENE GLYCOL 3350 119 GM BTL PO SCH (10:11)
[2016-09-05] MEDS: METOPROLOL SUCCINATE 25 MG TAB.SR.24H (FP) PO SCH (10:20)
[2016-09-05] MEDS: SILVER SULFADIAZINE 1% TOP CREAM 50 GM JAR TP SCH (14:42)
[2016-09-05 15:27] VITALS: BP 148/76; PULSE 70; TEMP 98.3
--- NOTE | 2016-09-09 14:43 | EKG ---
Test Reason : Blood Pressure : / mmHG Vent. Rate : 073 BPM Atrial Rate : 073 BPM P-R Int : 140 ms QRS Dur : 132 ms QT Int : 426 ms P-R-T Axes : 057 238 015 degrees QTc Int : 469 ms NORMAL SINUS RHYTHM RIGHT BUNDLE BRANCH BLOCK INFERIOR INFARCT , AGE UNDETERMINED ABNORMAL ECG WHEN COMPARED WITH ECG OF 26-JUN-2016 12:06, NO SIGNIFICANT CHANGE WAS FOUND Confirmed by ROZINA JORDAN MD ([id number]) on 09/09/2016 2:43:10 PM Referred By: Confirmed By:ROZINA JORDAN MD
== END 2016-09-05 15:47 | DRG 388 ==
LOC: JER 10:43 → JERBED 18:38 → J5S 09-03 17:15
PROVIDERS: ADMIT Internal Medicine; ATTEND Internal Medicine
DX: K56.41 Fecal impaction (principal); E43 Unspecified severe protein-calorie malnutrition; G93.41 Metabolic encephalopathy; Z68.1 Body mass index [BMI] 19.9 or less, adult; R26.9 Unspecified abnormalities of gait and mobility; G20 Parkinson's disease; F02.80 Dementia in other diseases classified elsewhere, unspecified severity, without behavioral disturbance, psychotic disturbance, mood disturbance, and anxiety; I12.9 Hypertensive chronic kidney disease with stage 1 through stage 4 chronic kidney disease, or unspecified chronic kidney disease; F41.8 Other specified anxiety disorders; N18.9 Chronic kidney disease, unspecified; E78.5 Hyperlipidemia, unspecified; F32.9 Major depressive disorder, single episode, unspecified; M19.90 Unspecified osteoarthritis, unspecified site; D72.819 Decreased white blood cell count, unspecified; L89.152 Pressure ulcer of sacral region, stage 2; E78.00 Pure hypercholesterolemia, unspecified; K80.80 Other cholelithiasis without obstruction; Z96.653 Presence of artificial knee joint, bilateral
CPT/HCPCS: 36415; 74000-TC; 74176-TC; 80053; 81003; 83605; 83735; 84100; 85025; 93005; 93010; 97116-GP; 97161-GP; 99285-25